=== PATIENT | male | born 1950 | race Caucasian/White ===

== ENCOUNTER → 2017-11-15 | Outpatient (CLI) | payer OTHER | LOC: FIMAGING 14:40 | PROVIDERS: ATTEND Orthopaedic Surgery | DX: M17.11 Unilateral primary osteoarthritis, right knee (principal) ==

== ENCOUNTER → 2018-02-22 | Outpatient (CLI) | payer OTHER | LOC: FIMAGING 12:17 | PROVIDERS: ATTEND Orthopaedic Surgery | DX: M17.12 Unilateral primary osteoarthritis, left knee (principal) ==

== ENCOUNTER 2018-02-28 09:21 | Observation (INO) | payer OTHER ==
--- NOTE | 2018-02-28 06:13 | PDHPUP ---
History & Physical Update H&P update statement: This history and physical update is based on an assessment of the patient which was completed after admission or registration (within 24 hours), but prior to the surgery/procedure. H&P update: H&P reviewed & patient examined, no change in patient's condition since H&P completed
[~2018-02-28 09:21] MED LIST: MIDAZOLAM 2 MG/2 ML VIAL ONE; PROPOFOL/EMULSION 500 MG/50 ML BOTTLE IV ONE; ROPIVACAINE 0.2% 80 MG, EPINEPHrine 0.2 MG, KETOROLAC TROMETHAMINE 30 MG in SYRINGE 0 ML IU ONE; TRANEXAMIC ACID 3,000 MG in NS (SYRINGE) 50 ML IRR ONE
[2018-02-28] MEDS ORDERED: TRANEXAMIC ACID 3,000 MG/50 ML BAG IRR ONE (09:27)
[2018-02-28] MEDS ORDERED: ACETAMINOPHEN 325 MG TAB PO ONE (10:07)
[2018-02-28] MEDS ORDERED: DEXAMETHASONE 4 MG/ML VIAL IVP ONE (10:07)
[2018-02-28] MEDS ORDERED: FAMOTIDINE 20 MG TAB PO ONE (10:07)
[2018-02-28] MEDS ORDERED: ceFAZolin 2 GM/DEXTROSE 100 ML IV ONE (10:07)
[2018-02-28] MEDS ORDERED: LR 1,000 ML IV ONE (10:09)
[2018-02-28] MEDS ORDERED: LIDOCAINE 2% 5 ML SDV ONE (10:22)
[2018-02-28] MEDS ORDERED: ROPIVACAINE HCL 150 MG/30 ML INJ ONE (10:22)
--- NOTE | 2018-02-28 10:27 | PDANEPAE ---
ANE Past Medical History - Cardiovascular History Hx Hypertension: No Hx Arrhythmias: No Hx Chest Pain: No Hx Coronary Artery / Peripheral Vascular Disease: No Hx CHF / Valvular Disease: Yes Hx Palpitations: No Cardiovascular History Comment: diagnosed with a heart murmur this summer - Pulmonary History Hx COPD: No Hx Asthma/Reactive Airway Disease: No Hx Recent Upper Respiratory Infection: No Hx Oxygen in Use at Home: No Hx Sleep Apnea: Yes Sleep Apnea Screening Result - Last Documented: Positive Pulmonary History Comment: [place] WITH C-PAP - Neurologic History Hx Cerebrovascular Accident: No Hx Seizures: No Hx Dementia: No - Endocrine History Hx Diabetes: No - Renal History Hx Renal Disorders: No - Liver History Hx Hepatic Disorders: No - Neurological & Psychiatric Hx Hx Neurological and Psychiatric Disorders: No - Cancer History Hx Cancer: No - Congenital Disorder History Hx Congenital Disorders: No - GI History Hx Gastrointestinal Disorders: Yes Gastrointestinal History Comment: developed gastritis and ulcer from celebrex after knee surgery 11/2017 - Other Health History Other Health History: wears glasses. bilat hearing aids - Chronic Pain History Chronic Pain: Yes (KRISTINA HIP) - Surgical History Prior Surgeries: R TKA, 11/2017. L Hip, 07/2014. TONSILLECTOMY ANE Review of Systems Review of Systems: - Exercise capacity METS (RN): 5 METS ANE Patient History - Allergies Allergies/Adverse Reactions: No Known Allergies Allergy (Verified 11/12/17 11:14) - Home Medications Home Medications: Protonix 40mg (*) 02/11/18 [Last Taken 02/28/18] - Smoking Hx Smoking Status: Former smoker - Family Anes Hx Family Hx Anesthesia Complications: NEG ANE Labs/Vital Signs - Vital Signs Height: 180.34 cm Weight: 62.142 kg ANE Physical Exam - Airway Neck exam: FROM Mallampati Score: Class 2 Mouth exam: normal dental/mouth exam - Pulmonary Pulmonary: no respiratory distress, no rales or rhonchi, reduced air movement - Cardiovascular Cardiovascular: regular rate and rhythym, no murmur, rub, or gallop - ASA Status ASA Status: III ANE Anesthesia Plan Anesthesia Plan: spinal Regional Anesthesia: single shot NB, adductor canal FNB
[2018-02-28] MEDS ORDERED: NALOXONE HCL 0.4 MG/ML INJ IVP PRN (10:28)
[2018-02-28] MEDS ORDERED: fentaNYL 100 MCG/2 ML INJ IVP PRN (10:28)
[2018-02-28] MEDS ORDERED: ONDANSETRON 4 MG/2 ML VIAL IVP PRN ×2 (10:28→12:09)
[2018-02-28] MEDS ORDERED: LR 500 ML IV PRN (10:28)
[2018-02-28] MEDS ORDERED: DEXAMETHASONE 4 MG/ML VIAL IVP PRN (10:28)
[2018-02-28] MEDS ORDERED: ALBUTEROL 3 ML DEYVIAL IH PRN (10:28)
[2018-02-28] MEDS ORDERED: METOCLOPRAMIDE 10 MG/2 ML VIAL IVP PRN ×2 (10:28→12:09)
[2018-02-28] MEDS ORDERED: fentaNYL 100 MCG/2 ML INJ ONE (11:10)
[2018-02-28] MEDS ORDERED: ONDANSETRON 4 MG/2 ML VIAL ONE (11:50)
[2018-02-28] MEDS ORDERED: CYCLOBENZAPRINE 10 MG TAB PO PRN (12:09)
[2018-02-28] MEDS ORDERED: oxyCODONE IR 5 MG TAB PO PRN (12:09)
[2018-02-28] MEDS ORDERED: POLYETHYLENE GLYCOL 3350 17 GM PKT PO PRN (12:09)
[2018-02-28] MEDS ORDERED: PROMETHAZINE HCL 25 MG/ML INJ IVP PRN (12:09)
[2018-02-28] MEDS ORDERED: MAGNESIUM HYDROXIDE 30 ML UDCUP PO PRN (12:09)
[2018-02-28] MEDS ORDERED: diphenhydrAMINE 25 MG CAP PO PRN (12:09)
[2018-02-28] MEDS ORDERED: LACTULOSE 20 GM/30 ML UDCUP PO PRN (12:09)
[2018-02-28] MEDS ORDERED: BISACODYL 10 MG SUPP PR PRN (12:09)
[2018-02-28] MEDS ORDERED: DIPHENOXYLATE/ATROPINE LOMOTIL 1 TAB PO PRN (12:09)
[2018-02-28] MEDS ORDERED: PROMETHAZINE HCL 25 MG SUPPR PR PRN (12:09)
[2018-02-28] MEDS ORDERED: ONDANSETRON DISINTEGRATING 4 MG TAB PO PRN (12:09)
[2018-02-28] MEDS ORDERED: TEMAZEPAM 15 MG CAP PO PRN (12:09)
--- NOTE | 2018-02-28 12:09 | POSTOPPROG ---
Post Op Note Date of Operation: 02/28/18 Surgeon: Michael Thapa Circulating Process Inspector: abbey thapa PA-C Anesthesiologist: Dr. gupta Anesthesia: Spinal, Other (Specify) (adductor canal block) Pre-op Diagnosis: left knee OA Post-op Diagnosis: same Indication: left knee pain Procedure: L TKA robot assisted, sensor assisted Findings: severe knee OA Inf/Abcess present in the surg proc area at time of surgery?: No EBL: 50-100
[2018-02-28] MEDS ORDERED: LR 1,000 ML IV SCH (12:30)
--- NOTE | 2018-02-28 12:32 | POSTANESTH ---
Post Anesthetic Evaluation Cardiovascular Status: Normal, Stable, Similar to Pre-Op Cond Respiratory Status: Normal, Stable, Similar to Pre-op Cond. Level of Consciousness/Mental Status: Can Participate in Eval Pain Control: Adequate, Prn Tx Ordered Nausea/Vomiting Control: Adequate, Prn Tx Ordered Complications Possibly Related to Anesthesia: None Noted
[2018-02-28] MEDS: ACETAMINOPHEN 325 MG TAB PO SCH ×2 (17:16→23:51)
[2018-02-28] MEDS: ceFAZolin 2 GM/DEXTROSE 100 ML IV SCH (18:04)
[2018-02-28] MEDS: SENNOSIDES/DOCUSATE SODIUM TAB PO SCH (21:24)
[2018-02-28] MEDS: ASPIRIN 81 MG CHEWABLE TAB PO SCH (21:25)
[2018-02-28] MEDS: FAMOTIDINE 20 MG TAB PO SCH (21:25)
[2018-03-01] MEDS: ceFAZolin 2 GM/DEXTROSE 100 ML IV SCH (01:59)
--- NOTE | 2018-03-01 05:33 | GOP ---
DATE OF OPERATION: 02/28/2018 SURGEON: Bell Sung MD ADULT NEUROLOGIST: Amanda Sung, EVELIN. ANESTHESIA: Spinal. PREOPERATIVE DIAGNOSIS: Left knee osteoarthritis. POSTOPERATIVE DIAGNOSIS: Left knee osteoarthritis. PROCEDURE PERFORMED: Left total knee arthroplasty with computer navigation, robotic assist. FINDINGS: ESTIMATED BLOOD LOSS: 30 cc. INDICATIONS: The patient is a 67-year-old male with severe and progressive pain and deformity of the left knee unresponsive to conservative care. The risks and benefits of surgical intervention were e xplained in detail. DESCRIPTION OF PROCEDURE: The patient was brought to the operative room and placed on the table in t he supine position. Spinal anesthesia was induced without difficulty. A pneumatic tourniquet was appl ied about the left proximal thigh, and the leg was prepped and draped in a sterile fashion. The leg h older was applied. After exsanguination by elevation the tourniquet was inflated to 250 mmHg. Incision was made anterior medial from the tibial tuberosity to a point cm proximal to the superior p ole of the patella. Medial parapatellar arthrotomy was carried out from the superior pole of the navarrete lla and posteriorly in line with the fibers of the Type II VMO. The medial collateral ligament was el evated and the infrapatellar fat pad was resected. The patella was everted and the articular surface was excised. A 38 mm patellar button was placed. Attention was turned first to the distal aspect of the femur. After exposure of the femur, 2 half pi ns were placed for fixation of the femoral array. In a similar fashion, 2 pins were placed anteromed ial on the tibia for fixation of the tibial array. External land marking and registration of the hip center was performed without difficulty. Internal femoral and tibial registration was carried out w ithout difficulty and the femoral and tibial checkpoints were placed and verified for accuracy. Attention was turned to the femur. The foot print for the size 5 femoral component was cut with the saw using the [employer] robotic system and verified for accuracy against the CT based plan. In a similar f ashion, the saw was used to cut the footprint for the size 6 tibial component using the [employer] system an d verified for accuracy against the CT based plan. The tibial articular surface was excised without d ifficulty, followed by the intercondylar box cut. The knee was extended and the remnants of the medial and lateral meniscus were excised. The posterior capsule was injected with ropivacaine, epinephrine and Toradol. A size 6 tibial tray was positioned . Trial reduction was then carried out. There was excellent range of motion, alignment, and stability using the 6.9 mm polyethylene. All trials were then removed. The joint was thoroughly irrigated and carefully dried. The components were implanted. The permanent 9 mm polyethylene was placed without difficulty. The tourniquet was deflated and all bleeders were coagulated. The wound was thoroughly irrigated and closed using interrupted sutures of 2-0 Vicryl for the joint capsule. The subcu was closed with 3-0 V icryl and the skin with 4-0 Monocryl. Dermabond and Steri-Strips were applied followed by a compress alban dressing. The patient was then moved from the operating room to the recovery room in good conditi on, having tolerated the procedure well. /[id number]/MODL
[2018-03-01] MEDS: ACETAMINOPHEN 325 MG TAB PO SCH (05:51)
[2018-03-01 07:46] VITALS: BP 129/78
[2018-03-01] MEDS: SENNOSIDES/DOCUSATE SODIUM TAB PO SCH (07:58)
[2018-03-01] MEDS: ASPIRIN 81 MG CHEWABLE TAB PO SCH (07:58)
[2018-03-01] MEDS: FAMOTIDINE 20 MG TAB PO SCH (07:58)
--- NOTE | 2018-03-01 09:54 | SOAPPROG ---
SOAP Progress Note Assessment/Plan: Assessment: Patient is doing well POD 1 s/p L TKA pain is well controlled on oral pain meds VTE ppx: recommend ASA 81 mg BID for 4 weeks Anemia: level is expected initially postop. continue to monitor closely D/c planning: pending release from PT, patient may d/c to home today. Plan: 03/01/18 09:53 Subjective: patient is doing well,denies SOB, chest pain and n/v Objective: Vital Signs Temp Pulse Resp BP Pulse Ox 36.9 C 99 14 129/78 H 95 03/01/18 07:45 03/01/18 07:45 03/01/18 07:45 03/01/18 07:45 03/01/18 07:45 Laboratory Results 03/01/18 06:00 02/28/18 03/01/18 03/02/18 05:59 05:59 05:59 Intake Total 3330 Output Total 1435 Balance 1895 LLE; incision dressing is clean and dry, NVI, +pf/df ICD10 Worksheet Patient Problems: Problems Problem Status Onset Primary localized osteoarthritis of left knee Acute Osteoarthritis of hip Acute Primary localized osteoarthritis of right knee Acute
== END 2018-03-01 11:43 | disposition home or self-care (01) ==
LOC: F3N 09:21
PROVIDERS: ADMIT Orthopaedic Surgery; ATTEND Orthopaedic Surgery
DX: M17.12 Unilateral primary osteoarthritis, left knee (principal); D62 Acute posthemorrhagic anemia; I08.2 Rheumatic disorders of both aortic and tricuspid valves; K27.7 Chronic peptic ulcer, site unspecified, without hemorrhage or perforation; G47.33 Obstructive sleep apnea (adult) (pediatric); Z96.651 Presence of right artificial knee joint
CPT/HCPCS: 27447; 73560; 97116; 97161; G0378; J0171; J0690; J1100; J1885; J2250; J2405; J2704; J2795; J3010